=== PATIENT | female | born 1955 | race Caucasian/White ===

== ENCOUNTER 2022-01-26 08:25 | Day surgery (SDC) | payer MEDICARE, OTHER ==
[~2022-01-26] VITALS: Ht 167.6 cm; Wt 66.2 kg
[2022-01-26] VITALS (7 sets, daily range): BP systolic 103–130; BP diastolic 54–82
[2022-01-26] MEDS ORDERED: FLUT16SP26 BOTHNARES (08:51)
[2022-01-26] MEDS ORDERED: LEVO75TA7 PO (08:51)
[2022-01-26] MEDS ORDERED: LOVA20TA2 PO (08:51)
[2022-01-26] MEDS ORDERED: PROC10TA10 PO (08:51)
[2022-01-26] MEDS ORDERED: CHOL200012 PO (08:51)
[2022-01-26] MEDS ORDERED: PROM25TA14 PO (08:51)
[2022-01-26] MEDS ORDERED: PROP10TA10 PO (08:51)
[2022-01-26] MEDS ORDERED: ONDA8TAB13 PO (08:51)
[2022-01-26 09:24] LABS: BASOPHILS % (AUTO) 0.4 % (0-1); EOSINOPHILS % (AUTO) 1.2 % (0-6); HEMATOCRIT 35.3 % (35.0-45.0); HEMOGLOBIN 11.8 g/dl (12.0-16.0); LYMPHOCYTES # (AUTO) 0.3 X10'3 (1.1-4.8); LYMPHOCYTES % (AUTO) 12.9 % (21-51); MEAN CORPUSCULAR HEMOGLOBIN 31.6 PG (27.0-31.0); MEAN CORPUSCULAR HGB CONC 33.4 g/dL (33.0-36.5); MEAN CORPUSCULAR VOLUME 94.5 FL (78-98); MEAN PLATELET VOLUME 6.6 FL (7.4-10.4); MONOCYTES # (AUTO) 0.4 X10'3 (0-0.9); MONOCYTES % (AUTO) 16.6 % (2-12); NEUTROPHILS # (AUTO) 1.5 X10'3 (1.8-7.7); NEUTROPHILS % (AUTO) 68.9 % (42-75); PLATELET COUNT 232 X10'3 (140-440); RED BLOOD COUNT 3.74 X10'6 (4.20-5.60); RED CELL DISTRIBUTION WIDTH 15.2 % (11.5-14.5); WHITE BLOOD COUNT 2.2 X10'3 (4.5-11.0)
[2022-01-26 09:42] LABS: TOTAL CELLS COUNTED 100
[2022-01-26 09:43] LABS: PLATELET ESTIMATE NORMAL
[2022-01-26] MEDS ORDERED: LIDOcaine 1%/PF 5ML 10 MG/ML VIAL ONE (09:49)
[2022-01-26] MEDS ORDERED: midazolam 1 mg/ML 2ml injection ONE (09:49)
[2022-01-26] MEDS ORDERED: fentaNYL/PF 50MCG/1 ML 2ML syringe ONE (09:49)
[2022-01-26] MEDS ORDERED: LIDOcaine 2% 10ml TOPICAL JELLY (Urojet) MM ONE (10:15)
[2022-01-26] MEDS ORDERED: glucagon, human recombinant 1mg kit ONE (10:17)
[2022-01-26] MEDS ORDERED: iohexol 300 MG/1 ML 50ml polymer ONE (10:51)
[2022-01-26] MEDS ORDERED: ondansetron/PF 4mg/2ml inj ONE (10:54)
[2022-01-26] MEDS ORDERED: normal saline 1000ml 1,000 ML IV PRN (16:35)
== END 2022-01-26 12:55 | disposition home or self-care (01) ==
LOC: SSTAY O 08:25
PROVIDERS: ATTEND Radiology Vascular & Interventional Radiology
DX: R13.10 Dysphagia, unspecified (principal); C09.9 Malignant neoplasm of tonsil, unspecified; E03.9 Hypothyroidism, unspecified; I10 Essential (primary) hypertension; E78.5 Hyperlipidemia, unspecified; Z79.899 Other long term (current) drug therapy; Z87.891 Personal history of nicotine dependence
CPT/HCPCS: 49440; 85025; 99152; C1713; J1610; J2250; J3010; J3490; Q9967; 85007; 99153; B4087; J2405

== ENCOUNTER 2022-02-25 02:32 | Emergency (ER) | payer MEDICARE, OTHER ==
[~2022-02-25] VITALS: Ht 167.6 cm; Wt 66.0 kg
[~2022-02-25 02:32] MED LIST: CHOL200012 PO; FLUT16SP26 BOTHNARES; LEVO75TA7 PO; LOVA20TA2 PO; ONDA8TAB13 PO; PROC10TA10 PO; PROM25TA14 PO; PROP10TA10 PO
[2022-02-25 02:34] VITALS: BP 125/88
[2022-02-25] MEDS ORDERED: diatrozoate meglu/diatrozoate sod (37% iodine) 120ML oral solution PO ONE (03:00)
[2022-02-25] MEDS ORDERED: diatr meglu/diatrizoate 30ml oral sol.-(3 dose) bottle ONE (03:08)
== END 2022-02-25 03:44 | disposition home or self-care (01) ==
LOC: ER 02:33
DX: K94.29 Other complications of gastrostomy (principal); Z85.9 Personal history of malignant neoplasm, unspecified; Z79.899 Other long term (current) drug therapy
CPT/HCPCS: 43762; 74018; 99284; Q9963; 99283

== ENCOUNTER 2022-07-26 12:48 | Outpatient (CLI) | payer MEDICARE, OTHER | END 2022-07-26 23:59 | disposition home or self-care (01) | LOC: RAD 12:48 | PROVIDERS: ATTEND Student in an Organized Health Care Education/Training Program | DX: R13.12 Dysphagia, oropharyngeal phase (principal); R49.0 Dysphonia; R47.1 Dysarthria and anarthria; Z85.89 Personal history of malignant neoplasm of other organs and systems | CPT/HCPCS: 74230 ==